=== PATIENT | male | born 1960 | race Caucasian/White ===

== ENCOUNTER 2020-12-24 14:11 | Observation (INO) | payer OTHER, SELFPAY ==
--- NOTE | 2020-12-24 14:47 | RAD REPORT ---
EXAM DESCRIPTION: CT - Ct Stroke Brain Wo Cont - 12/24/2020 2:37 pm CLINICAL HISTORY: AMS and visual changes Headache, drowsiness, visual changes, CVA type symptoms. COMPARISON: No comparisons TECHNIQUE: All CT scans are performed using dose optimization technique as appropriate and may inclu de automated exposure control or mA/KV adjustment according to patient size. FINDINGS: No intracranial hemorrhage, hydrocephalus or extra-axial fluid collection.No areas of brai n edema or evidence of midline shift. Moderate opacification both maxillary antra seen. Paranasal sinuses and mastoids are otherwise clear. The calvarium is intact. IMPRESSION: No acute intracranial abnormality. Moderate bilateral maxillary sinus disease. The findings were discussed with Dr. Mayorga in the ER On 12/24/2020 at 2:42 p.m. by telephone.
[2020-12-24 14:49] LABS: Absolute Lymphocytes (CBC) 1.3 K/uL (0.7-4.9); Basophils % 0.7 % (0-1.3); Hematocrit 42.8 % (39.6-49.0); Lymphocytes % 16.9 % (15.3-44.8); MPV 8.2 fL (7.6-11.3); RBC Red Blood Cell Count 5.12 M/uL (4.33-5.43)
[2020-12-24 14:58] LABS: Protime INR 1.12
--- NOTE | 2020-12-24 15:10 | RAD REPORT ---
EXAM DESCRIPTION: RAD - Chest Single View - 12/24/2020 3:00 pm CLINICAL HISTORY: AMS and visual changes Chest pain. COMPARISON: No comparisons FINDINGS: Portable technique limits examination quality. The lungs are grossly clear. The heart is normal in size. No displaced fractures. IMPRESSION: No acute intrathoracic process suspected.
[2020-12-24 15:24] LABS: Potassium 2.2 mmol/L (3.5-5.1)
--- NOTE | 2020-12-24 16:39 | RAD REPORT ---
EXAM DESCRIPTION: CT - Chest Abd Pelvis Wo Con - 12/24/2020 4:18 pm CLINICAL HISTORY: Chest and abdomen pain. CHEST PAIN COMPARISON: No comparisons TECHNIQUE: A limited noncontrast study is performed. All CT scans are performed using dose optimization technique as appropriate and may include automated exposure control or mA/KV adjustment according to patient size. FINDINGS: Right apical air cyst is present measuring 3 cm. Smaller cystic areas are seen within the dominant air cyst.No pulmonary mass or infiltrate seen.No pleural or pericardial effusion.No intratho racic adenopathy. The liver, spleen, pancreas, adrenal glands and kidneys are within normal limits. Cholecystectomy. Po stsurgical changes of gastric bypass noted. No bowel obstruction, free air, free fluid or abscess. Normal appendix. There is significant fecal re tention throughout the colon. No pathologic lymphadenopathy in the abdomen or pelvis. Moderate lumbar degenerative changes. IMPRESSION: Significant constipation is present.
[2020-12-24] MEDS ORDERED: POTASSIUM CL SA 10 MEQ TAB PO ONE (17:41)
[2020-12-24] MEDS ORDERED: NA CHLORIDE 0.9% 1,000 ML ONE (17:42)
[2020-12-24] MEDS ORDERED: KCL 20 MEQ/100 mL IVPB 20 MEQ/100 ML BAG IV ONE (17:42)
--- NOTE | 2020-12-24 18:49 | RAD REPORT ---
EXAM DESCRIPTION: MRI - Brain Wo Cont - 12/24/2020 6:26 pm CLINICAL HISTORY: Altered mental status and visual disturbance;Dizziness Headache, drowsiness, visual disturbances. COMPARISON: Chest Single View dated 12/06/2018; CHEST SINGLE VIEW dated 01/03/2011Ct Stroke Brain Wo Co nt dated 12/24/2020 TECHNIQUE: Multi-sequence, multiplanar MR imaging of the brain was performed without contrast. FINDINGS: No intracranial hemorrhage, hydrocephalus or extra-axial fluid collections.A few small foc i of elevated periventricular FLAIR hyperintensities noted in a nonspecific pattern. These are doubtf ul to any clinical significance. No edema or shift of midline structures. No findings to suspect brai n mass. DWI is negative for acute CVA. Midline structures are normally formed. Moderate opacification of both maxillary antra. IMPRESSION: Negative for acute CVA or other acute intracranial process. Moderate bilateral maxillary sinus disease.
--- NOTE | 2020-12-24 19:15 | EDPHYS ---
Physician Documentation [facility] Name: Irvin Grullon Age: 60 yrs Sex: Male : 1960 Arrival Date: 12/24/2020 Time: 14:12 Bed 26 Private MD: ED Physician Harris Mayorga HPI: 12/24 18:47 This 60 yrs old Male presents to ER via Wheelchair with complaints of Blurred kdr Vision, Slurred Speech. 18:47 The patient presents to the emergency department with a speech or higher order brain kdr function problem, Slurred speech, a vision problem, Spots traveling across his field of vision, Patient also states that he has been having unusual thoughts. Onset: The symptoms/episode began/occurred Patient's symptoms were noted on awakening this morning. He has been having the visual disturbances for several weeks. The slurring of his speech however was new today.. Context: occurred at home, occurred while the patient was asleep. Associated signs and symptoms: Pertinent positives: dizziness, blurred vision, visual field changes. Severity of symptoms: At their worst the symptoms were mild moderate just prior to arrival, in the emergency department the symptoms are unchanged. Patient's baseline: Neuro: alert and fully oriented, Motor: no deficits, Ambulation: walks without assistance. Current symptoms: Patient speech has improved but is not back to baseline. He continues to have mild intermittent blurry vision but symptoms have improved.. The visual disturbances have been going on for a couple of weeks but his speech changes are new today. The patient has been recently seen by a physician: Patient was recently seen for anemia and weakness. His relates that he is hemoglobin was about 6 and required transfusion and admission. They are not certain as to why this happened.. Historical: - Allergies: 14:28 No Known Allergies; jd3 - Home Meds: 14:28 "muscle relaxer" [Active]; sertraline oral [Active]; Baclofen Oral [Active]; jd3 21:26 Champion 10-325 mg oral tab 1 tab every 4-6 hours for pain [Active]; hydrochlorothiazide df1 12.5 mg oral tab 1 tab once daily [Active]; sertraline 100 mg oral tab 2 tabs once daily [Active]; furosemide 20 mg Oral tab 1 tab once daily [Active]; baclofen 10 mg Oral tab 1 tab 4 times per day [Active]; famotidine 20 mg Oral tab 1 tab once daily [Active]; atorvastatin 20 mg oral tab 1 tab once daily [Active]; potassium chloride 10 mEq Oral cpER 1 cap once daily [Active]; pantoprazole 40 mg oral TbEC 1 tab once daily [Active]; ferrous sulfate 325 mg (65 mg iron) oral TbEC 325 mg daily [Active]; aspirin 81 mg Oral chew 1 tab once daily [Active]; - PMHx: 14:28 chronic back pain; Hypertensive disorder; low BGL; jd3 - Immunization history:: Client reports receiving the 2nd dose of the Covid vaccine, Date received: August 2020. - Social history:: Smoking status: Reported history of juuling and/or vaping. ROS: 18:47 Constitutional: Negative for fever, chills, and weight loss, Eyes: Negative for injury, kdr pain, redness, and discharge, ENT: Negative for injury, pain, and discharge, Neck: Negative for injury, pain, and swelling, Cardiovascular: Negative for chest pain, palpitations, and edema, Respiratory: Negative for shortness of breath, cough, wheezing, and pleuritic chest pain, Abdomen/GI: Negative for abdominal pain, nausea, vomiting, diarrhea, and constipation, Back: Negative for injury and pain, : Negative for injury, bleeding, discharge, and swelling, MS/Extremity: Negative for injury and deformity, Skin: Negative for injury, rash, and discoloration, Allergy/Immunology: Negative for hives, rash, and allergies, Endocrine: Negative for neck swelling, polydipsia, polyuria, polyphagia, and marked weight changes, Hematologic/Lymphatic: Negative for swollen nodes, abnormal bleeding, and unusual bruising. 18:47 Neuro: Positive for dizziness, headache, visual changes, Spots moving across to his eyes, Negative for 18:47 Psych: Positive for The patient states that he has been having intrusive thoughts which are not dangerous to himself or others, Negative for auditory hallucinations, visual hallucinations, homicidal ideation, suicide gesture, suicidal ideation. Exam: 18:47 Constitutional: This is a well developed, well nourished patient who is awake, alert, kdr and in no acute distress. Head/Face: Normocephalic, atraumatic. Eyes: Pupils equal round and reactive to light, extra-ocular motions intact. Lids and lashes normal. Conjunctiva and sclera are non-icteric and not injected. Cornea within normal limits. Periorbital areas with no swelling, redness, or edema. Neck: Trachea midline, no thyromegaly or masses palpated, and no cervical lymphadenopathy. Supple, full range of motion without nuchal rigidity, or vertebral point tenderness. No Meningismus. Chest/axilla: Normal chest wall appearance and motion. Nontender with no deformity. No lesions are appreciated. Cardiovascular: Regular rate and rhythm with a normal S1 and S2. No gallops, murmurs, or rubs. Normal PMI, no JVD. No pulse deficits. Respiratory: Lungs have equal breath sounds bilaterally, clear to auscultation and percussion. No rales, rhonchi or wheezes noted. No increased work of breathing, no retractions or nasal flaring. Abdomen/GI: Soft, non-tender, with normal bowel sounds. No distension or tympany. No guarding or rebound. No evidence of tenderness throughout. Back: No spinal tenderness. No costovertebral tenderness. Full range of motion. Skin: Warm, dry with normal turgor. Normal color with no rashes, no lesions, and no evidence of cellulitis. MS/ Extremity: Pulses equal, no cyanosis. Neurovascular intact. Full, normal range of motion. Neuro: Awake and alert, GCS 15, oriented to person, place, time, and situation. Cranial nerves II-XII grossly intact. Motor strength 5/5 in all extremities. Sensory grossly intact. Cerebellar exam normal. His does not feel that he is presently exhibiting neurologic symptoms not in accordance with his baseline behavior Psych: Awake, alert, with orientation to person, place and time. Behavior, mood, and affect are within normal limits. Vital Signs: 14:29 BP 137 / 92; Pulse 91; Resp 17 S; Temp 97.7(O); Pulse Ox 100% on R/A; Weight 77.11 kg jd3 (R); Height 5 ft. 11 in. (180.34 cm) (R); Pain 7/10; 15:56 BP 137 / 78; Pulse 74; Resp 18 S; Pulse Ox 99% on R/A; kh1 18:36 BP 150 / 98; Pulse 70; Resp 20 S; Temp 97.0; Pulse Ox 95% on R/A; kh1 19:36 BP 122 / 89; Pulse 72; Resp 18; Pulse Ox 97% on R/A; df1 21:18 BP 150 / 86; Pulse 71; Resp 18; Pulse Ox 87% on R/A; bc5 23:06 BP 133 / 71; Pulse 71; Resp 18; Pulse Ox 100% on R/A; df1 14:29 Body Mass Index 23.71 (77.11 kg, 180.34 cm) jd3 NIH Stroke Scale Scores: 14:39 NIHSS Score: 1 oh MDM: 19:12 Data reviewed: vital signs, nurses notes, lab test result(s), radiologic studies. ED kdr course: The patient had stated during the initial evaluation that he was unable to swallow solids and even some liquids, he did take the potassium replacement p.o. and he also did fine with the swallow study for the stroke evaluation. I nonetheless gave him some soda and crackers to affirm his ability to take p.o.. 19:15 Patient medically screened. [facility] [address] 12/24 14:24 Order name: Basic Metabolic Panel; Complete Time: 16:58 [facility] [address] 12/24 14:24 Order name: CBC with Diff; Complete Time: 16:58 [facility] [address] 12/24 14:24 Order name: Protime (+inr); Complete Time: 16:58 [facility] [address] 12/24 14:24 Order name: Ptt, Activated; Complete Time: 16:58 [facility] [address] 12/24 14:31 Order name: Glucose, Ancillary Testing; Complete Time: 16:58 [facility] 12/24 14:24 Order name: CT Stroke Brain w/o Contrast; Complete Time: 16:58 [facility] [address] 12/24 14:24 Order name: Stroke CXR 1 View; Complete Time: 16:58 [facility] [address] 12/24 15:12 Order name: MRI - Brain Wo Cont; Complete Time: 18:54 [facility] [address] 12/24 16:15 Order name: Chest Abd Pelvis Wo Con; Complete Time: 16:58 [facility] 12/24 21:39 Order name: SARS-COV-2 RT PCR EDDC 12/24 14:24 Order name: EKG; Complete Time: 14:24 [facility] [address] 12/24 14:24 Order name: Accucheck; Complete Time: 14:36 [facility] [address] 12/24 14:24 Order name: Cardiac monitoring; Complete Time: 14:36 [facility] [address] 12/24 14:24 Order name: EKG - Nurse/Tech; Complete Time: 14:36 [facility] [address] 12/24 14:24 Order name: IV Saline Lock; Complete Time: 14:37 [facility] [address] 12/24 14:24 Order name: Labs collected and sent; Complete Time: 14:37 [facility] [address] 12/24 14:24 Order name: NPO; Complete Time: 14:37 [facility] [address] 12/24 14:24 Order name: O2 Per Protocol; Complete Time: 14:37 [facility] [address] 12/24 14:24 Order name: O2 Sat Monitoring; Complete Time: 14:37 [facility] [address] 12/24 14:24 Order name: Stroke Swallow Screen; Complete Time: 15:56 [facility] [address] 12/24 19:58 Order name: CONS Physician Consult EDMS Administered Medications: 17:38 Drug: Potassium Chloride 20 mEq Route: IV; Rate: calculated rate; Site: right formerly [facility] antecubital; 17:38 Drug: Potassium Chloride Liquid 40 mEq Route: PO; formerly [facility] 19:37 Follow up: Response: No adverse reaction df1 17:38 Drug: NS 0.9% 1000 ml Route: IV; Rate: 1 bolus; Site: right antecubital; formerly [facility] 23:06 Follow up: IV Status: Completed infusion; IV Intake: 1000ml df1 Disposition Summary: 12/24/20 19:15 Hospitalization Ordered Hospitalization Status: Observation kdr Provider: Carmelo Mesa kdr Location: Telemetry/[facility] (observation) kdr Condition: Fair kdr Problem: new kdr Symptoms: have improved kdr Bed/Room Type: Standard kdr Room Assignment: 230(12/24/20 22:31) tl1 Diagnosis - Other visual disturbances kdr - Slurred speech kdr - Hypokalemia kdr - Hypo-osmolality and hyponatremia kdr - Acute renal failure kdr Forms: - Medication Reconciliation Form kdr - SBAR form kdr NIH Stroke Scale - NIH Stroke Score Date: 12/24/2020 Time: 14:39 Total Score = 1 1a. Level of Consciousness (LOC) - 0(Alert) 1b. Level of Consciousness (LOC) (Month \\T\\ Age) - 0(Both) 1c. LOC Commands (Open \\T\\ Closes Eyes/Box Machine Operator) - 0(Both) 2. Best Gaze (Lateral Gaze Paresis) - 0(Normal) 3. Visual Field Loss - 1(Partial hemianopia) 4. Facial Palsy - 0(Normal) 5a. Left Arm: Motor (10-second hold) - 0(No drift) 5b. Right Arm: Motor (10-second hold) - 0(No drift) 6a. Left Leg: Motor (5-second hold - always test supine) - 0(No drift) 6b. Right Leg: Motor (5-second hold - always test supine) - 0(No drift) 7. Limb Ataxia (finger/nose \\T\\ heel/whitt - test with eyes open) - 0(Absent) 8. Sensory Loss (pinprick arms/legs/face) - 0(Normal) 9. Best Language: Aphasia (description/naming/reading) - 0(No aphasia) 10. Dysarthria (speech clarity - read or repeat words) - 0(Normal) 11. Extinction and Inattention (visual/tactile/auditory/spatial/personal) - 0(No abnormality) Initials: oh Signatures: Dispatcher [employer] EDMS Harris Mayorga MD MD kdr Lasagna, Tonya, RN RN tl1 Fausto Thurston RN RN Rima Swanson 1 Belén Ambriz df1 Corrections: (The following items were deleted from the chart) 16:15 15:12 Chest Abdomen Pelvis W Con+CT.RAD.BRZ ordered. EDMS EDMS 20:47 20:36 CORONAVIRUS+MR.LAB.BRZ ordered. EDMS EDMS 21:32 14:28 Home Meds: Champion Oral; jd3 df1 21:32 14:28 Home Meds: Hydrochlorothiazide Oral; jd3 df1 22:31 19:15 kdr tl1
--- NOTE | 2020-12-24 19:15 | ER ---
Nurse's Notes [facility] Name: Irvin Grullon Age: 60 yrs Sex: Male : 1960 Arrival Date: 12/24/2020 Time: 14:12 Bed 26 Private MD: Diagnosis: Other visual disturbances;Slurred speech;Hypokalemia;Hypo-osmolality and hyponatremia;Acute renal failure Presentation: 12/24 14:25 Chief complaint: Patient states: "I woke up today at 11 having some dizziness, slurred jd3 speech and seeing white dots in my eyes. the dots have been going on, but the other symptoms I noticed when I woke up. my family thinks it might be my low blood sugar, but I don't know. I feel better then I feel the symptoms again, coming and going.". Coronavirus screen: At this time, the client does not indicate any symptoms associated with coronavirus-19. Ebola Screen: Patient negative for fever greater than or equal to 101.5 degrees Fahrenheit, and additional compatible Ebola Virus Disease symptoms. No acute neurological deficit is noted. Pre-hospital glucose is not applicable to this patient. Initial Sepsis Screen: Does the patient meet any 2 criteria? No. Patient's initial sepsis screen is negative. Does the patient have a suspected source of infection? No. Patient's initial sepsis screen is negative. Risk Assessment: Do you want to hurt yourself or someone else? Patient reports no desire to harm self or others. Onset of symptoms was December 24, 2020. 14:25 Method Of Arrival: Wheelchair jd3 14:25 Acuity: GENE 3 jd3 Triage Assessment: 18:46 General: Appears in no apparent distress. uncomfortable, Behavior is calm, cooperative, kh1 appropriate for age. Pain:. 18:47 The onset of the patients symptoms was more than six hours ago. kh1 18:47 The onset of the patients symptoms was December 24, 2020 at 11:00. Neuro: No deficits kh1 noted. Level of Consciousness is obeys commands, Oriented to person, place, time, situation, Radiographer Cardiac Catheterization are equal bilaterally Moves all extremities. Gait is unsteady, Speech is normal. Stroke Activation: Symptom onset > 6 hours Physician: Stroke Attending; Name: ; Notified At: ; Arrived At: Physician: Chief Stroke Resident; Name: ; Notified At: ; Arrived At: Physician: Stroke Resident; Name: ; Notified At: ; Arrived At: Physician: ED Attending; Name: ; Notified At: ; Arrived At: Physician: ED Resident; Name: ; Notified At: ; Arrived At: Historical: - Allergies: 14:28 No Known Allergies; jd3 - Home Meds: 14:28 "muscle relaxer" [Active]; sertraline oral [Active]; Baclofen Oral [Active]; jd3 21:26 [place] 10-325 mg oral tab 1 tab every 4-6 hours for pain [Active]; hydrochlorothiazide df1 12.5 mg oral tab 1 tab once daily [Active]; sertraline 100 mg oral tab 2 tabs once daily [Active]; furosemide 20 mg Oral tab 1 tab once daily [Active]; baclofen 10 mg Oral tab 1 tab 4 times per day [Active]; famotidine 20 mg Oral tab 1 tab once daily [Active]; atorvastatin 20 mg oral tab 1 tab once daily [Active]; potassium chloride 10 mEq Oral cpER 1 cap once daily [Active]; pantoprazole 40 mg oral TbEC 1 tab once daily [Active]; ferrous sulfate 325 mg (65 mg iron) oral TbEC 325 mg daily [Active]; aspirin 81 mg Oral chew 1 tab once daily [Active]; - PMHx: 14:28 chronic back pain; Hypertensive disorder; low BGL; jd3 - Immunization history:: Client reports receiving the 2nd dose of the Covid vaccine, Date received: August 2020. - Social history:: Smoking status: Reported history of juuling and/or vaping. Screenin:53 Abuse screen: Denies threats or abuse. Nutritional screening: No deficits noted. oh Tuberculosis screening: No symptoms or risk factors identified. Fall Risk Assessment: 14:39 VAN Scoring: Arm Drift: Patients demonstrates NO arm weakness. Patient is VAN Negative. oh Visual Disturbance: Field Cut: Abnormal visual mcgee noted. Provider notified of +VAN scoring. Aphasia: No aphasia noted. Neglect: No neglect noted. Patient has been NPO before screening. The patient is alert, and able to follow commands. The patient does not exhibit slurred or garbled speech. The patient is not exhibiting difficulty speaking. The patient does not exhibit difficulty understanding words. The patient is unable to swallow own secretions without drooling or the need for suction. T-PA (Activase) Screening: Contraindications: Patient reports onset of signs and symptoms of stroke greater than 6 hours ago: Yes. Pain: Denies pain. EENT: Eyes blurry vision, seeing spots. 14:54 Neuro: Reports blurred vision dizziness and slurred speech. oh 15:17 Patient has been NPO before screening. The patient is alert, and able to follow oh commands. The patient does not exhibit slurred or garbled speech. The patient is not exhibiting difficulty speaking. The patient does not exhibit difficulty understanding words. The patient is able to swallow own secretions with no drooling or need for suction. Patient tolerated one teaspoon of water. No drooling, immediate coughing, gurgling, or clearing of the throat was noted. The patient tolerated 90mL of water. No drooling, immediate coughing, gurgling, or clearing of the throat was noted. The patient passed the bedside swallow screening. Oral medications may be given as ordered. Contact Physician for further diet orders. Provider notified of bedside swallow screening results: Harris Mayorga MD. 15:56 Reassessment: Patient appears in no apparent distress at this time. No changes from kh1 previously documented assessment. Patient and/or family updated on plan of care and expected duration. Pain level reassessed. Patient is alert, oriented x 3, equal unlabored respirations, skin warm/dry/pink. 17:00 Reassessment: Patient appears in no apparent distress at this time. No changes from kh1 previously documented assessment. Patient and/or family updated on plan of care and expected duration. Pain level reassessed. Patient is alert, oriented x 3, equal unlabored respirations, skin warm/dry/pink. 22:45 The patient is alert, and able to follow commands. The patient does not exhibit slurred df1 or garbled speech. The patient is not exhibiting difficulty speaking. The patient does not exhibit difficulty understanding words. The patient is able to swallow own secretions with no drooling or need for suction. Patient tolerated one teaspoon of water. No drooling, immediate coughing, gurgling, or clearing of the throat was noted. The patient tolerated 90mL of water. No drooling, immediate coughing, gurgling, or clearing of the throat was noted. The patient passed the bedside swallow screening. Oral medications may be given as ordered. Contact Physician for further diet orders. Vital Signs: 14:29 BP 137 / 92; Pulse 91; Resp 17 S; Temp 97.7(O); Pulse Ox 100% on R/A; Weight 77.11 kg jd3 (R); Height 5 ft. 11 in. (180.34 cm) (R); Pain 7/10; 15:56 BP 137 / 78; Pulse 74; Resp 18 S; Pulse Ox 99% on R/A; kh1 18:36 BP 150 / 98; Pulse 70; Resp 20 S; Temp 97.0; Pulse Ox 95% on R/A; kh1 19:36 BP 122 / 89; Pulse 72; Resp 18; Pulse Ox 97% on R/A; df1 21:18 BP 150 / 86; Pulse 71; Resp 18; Pulse Ox 87% on R/A; bc5 23:06 BP 133 / 71; Pulse 71; Resp 18; Pulse Ox 100% on R/A; df1 14:29 Body Mass Index 23.71 (77.11 kg, 180.34 cm) jd3 NIH Stroke Scale Scores: 14:39 NIHSS Score: 1 oh ED Course: 14:12 Patient arrived in ED. as 14:23 Harris Mayorga MD is Attending Physician. kdr 14:27 Triage completed. jd3 14:30 Arm band placed on. jd3 14:36 Rebecca Gaytan, MOO is Primary Nurse. oh 14:38 CT Stroke Brain w/o Contrast In Process Unspecified. EDMS 14:47 Ptt, Activated Sent. kh1 14:47 Protime (+inr) Sent. kh1 14:47 CBC with Diff Sent. kh1 14:47 Basic Metabolic Panel Sent. kh1 15:00 Stroke CXR 1 View In Process Unspecified. EDMS 15:26 Notified ED physician of a critical lab result(s). potassium 2.2 and chloride 82. aa5 16:18 Chest Abd Pelvis Wo Con In Process Unspecified. EDMS 18:26 MRI - Brain Wo Cont In Process Unspecified. EDMS 18:46 No provider procedures requiring assistance completed. Inserted saline lock: 20 gauge kh1 in right antecubital area, using aseptic technique. Blood collected. 18:47 Patient has correct armband on for positive identification. Call light in reach. Side kh1 rails up X 1. groundwater monitoring technician on. Pulse ox on. NIBP on. 19:13 Carmelo Mesa is Hospitalizing Provider. kdr 23:08 Patient admitted, IV remains in place. df1 Administered Medications: 17:38 Drug: Potassium Chloride 20 mEq Route: IV; Rate: calculated rate; Site: right [facility] antecubital; 17:38 Drug: Potassium Chloride Liquid 40 mEq Route: PO; kh1 19:37 Follow up: Response: No adverse reaction df1 17:38 Drug: NS 0.9% 1000 ml Route: IV; Rate: 1 bolus; Site: right antecubital; kh1 23:06 Follow up: IV Status: Completed infusion; IV Intake: 1000ml df1 Intake: 23:06 IV: 1000ml; Total: 1000ml. df1 Outcome: 19:15 Decision to Hospitalize by Provider. kdr 23:07 Admitted to Med/surg accompanied by tech. df1 23:07 Condition: stable 23:07 Instructed on the need for admit. 23:20 Patient left the ED. df1 NIH Stroke Scale - NIH Stroke Score Date: 12/24/2020 Time: 14:39 Total Score = 1 1a. Level of Consciousness (LOC) - 0(Alert) 1b. Level of Consciousness (LOC) (Month \\T\\ Age) - 0(Both) 1c. LOC Commands (Open \\T\\ Closes Eyes/Cargo Agent) - 0(Both) 2. Best Gaze (Lateral Gaze Paresis) - 0(Normal) 3. Visual Field Loss - 1(Partial hemianopia) 4. Facial Palsy - 0(Normal) 5a. Left Arm: Motor (10-second hold) - 0(No drift) 5b. Right Arm: Motor (10-second hold) - 0(No drift) 6a. Left Leg: Motor (5-second hold - always test supine) - 0(No drift) 6b. Right Leg: Motor (5-second hold - always test supine) - 0(No drift) 7. Limb Ataxia (finger/nose \\T\\ heel/whitt - test with eyes open) - 0(Absent) 8. Sensory Loss (pinprick arms/legs/face) - 0(Normal) 9. Best Language: Aphasia (description/naming/reading) - 0(No aphasia) 10. Dysarthria (speech clarity - read or repeat words) - 0(Normal) 11. Extinction and Inattention (visual/tactile/auditory/spatial/personal) - 0(No abnormality) Initials: oh Signatures: Dispatcher [employer] EDMS Harris Myaorga MD MD kdr Martinez, Amelia as Calderon, Audri, RN RN aa5 Fausto Thurston RN RN jd3 Rima See 1 Marce Lebron RN RN bc5 Belén Ambriz df1 Rebecca Gaytan RN RN oh Corrections: (The following items were deleted from the chart) 20:47 20:40 CORONAVIRUS+ drawn and sent. bc5 EDMS 21:32 14:28 Home Meds: [place] Oral; jd3 df1 21:32 14:28 Home Meds: Hydrochlorothiazide Oral; jd3 df1
--- NOTE | 2020-12-24 22:10 | P.HP ---
Certification for Inpatient Patient admitted to: Inpatient With expected LOS: <2 Midnights Patient will require the following post-hospital care: None Practitioner: I am a practitioner with admitting privileges, knowledge of patient current condition, hospital course, and medical plan of care. Services: Services provided to patient in accordance with Admission requirements found in Title 42 Section 412.3 of the Code of Federal Regulations Patient History Date of Service: 12/24/20 Reason for admission: ARF, hypokalemia, hyponatremia History of Present Illness: Mr. Grullon is a 60 yo M with chronic back pain, HTN, gastric bypass surgery 12 years ago who presents with blurred vision and slurred speech. One month ago, he was admitted to [facility] for weakness and anemia requiring transfusion (Hgb of 6) and told he had low iron at that time. FOBT was negative, no bleed was identified. Hgb 14 today. Today he reports that for hte past few weeks he had had blurred vision and white spots in front of his eyes. This morning whenhe woke up with slurred speech. He describes feeling 'spacy', like he is 'fading out', and dizzy and unsteady on his feet. Reports increased anxiety and fatigue. His says he wasn't making sense so they brought him to the ED. CT Head and MRI brain wnl. CXR wnl. CT A/P shows constipation. His speech has improved, passed bedside swallow, eating [employer]'s at bedside. He also reports he has lost 40 lbs (185 to 145lb) over the past year. Na 130, K 2.2, Cl 82, CO3 33, BUN 35, Cr 1.079, GFR 39, Glu 123. Does not report any kidney injury from admission at [facility]. Recently started taking furosemide one month ago for leg swelling, also takes HCTZ. Takes 1600mg of ibuprofen daily. - Past Medical/Surgical History -: chronic pain -: HTN -: low blood glucose -: gastric bypass 12 years ago -: [facility] Psychosocial/ Personal History: - Social History Smoking Status: Current every day smoker Alcohol use: No CD- Drugs: No Caffeine use: Yes Place of Residence: Home Review of Systems 10-point ROS is otherwise unremarkable General: Weakness, Malaise Neurological: Weakness, Incoordination, Change in Speech Physical Examination - Physical Exam General: Alert, In no apparent distress, Cooperative HEENT: Atraumatic, PERRLA, Mucous membr. moist/pink, EOMI, Sclerae nonicteric Neck: Supple, 2+ carotid pulse no bruit, No LAD, Without JVD or thyroid abnormality Respiratory: Clear to auscultation bilaterally, Normal air movement Cardiovascular: No edema, Regular rate/rhythm, Normal S1 S2, No gallops, No rubs, No murmurs Gastrointestinal: Normal bowel sounds, No tenderness Musculoskeletal: No tenderness Integumentary: No rashes Neurological: Normal strength at 5/5 x4 extr, Normal tone, Normal affect Lymphatics: No axilla or inguinal lymphadenopathy - Studies Laboratory Data (last 24 hrs) 12/24/20 14:29: PT 12.9 H, INR 1.12, APTT 30.4 12/24/20 14:29: WBC 7.60, Hgb 14.8, Hct 42.8, Plt Count 304 12/24/20 14:29: Sodium 130 L, Potassium 2.2 L*, BUN 35 H, Creatinine 1.79 H, Glucose 123 H Assessment and Plan - Problems (Diagnosis) (1) Hypokalemia Current Visit: Yes Status: Acute (2) Hyponatremia Current Visit: Yes Status: Acute (3) STEW (acute kidney injury) Current Visit: Yes Status: Acute (4) Chronic back pain Current Visit: Yes Status: Chronic Qualifiers: Back pain location: back pain in unspecified location Back pain laterality: unspecified Qualified Code(s): M54.9 - Dorsalgia, unspecified; G89.29 - Other chronic pain (5) HTN (hypertension) Current Visit: Yes Status: Chronic Qualifiers: Hypertension type: primary hypertension Qualified Code(s): I10 - Essential (primary) hypertension - Plan nephrology consulted recheck BMP at midnight, continue IVF hydration, continue potassium replacement stool softener PRN avoid NSAIDs, hold HCTZ and Lasix pain management as needed DVT ppx Discharge Plan: Home Plan to discharge in: 24 Hours - Advance Directives Does patient have a Living Will: No Does patient have a Durable POA for Healthcare: No - Code Status/Comfort Care Code Status Assessed: Yes (full code ) Critical Care: No Time Spent Managing Pts Care (In Minutes): 70
[2020-12-24 23:46] VITALS: BMI 20.4
[2020-12-24] MEDS ORDERED: KCL 20 MEQ/100 mL IVPB 20 MEQ/100 ML BAG IV SCH (23:59)
[2020-12-24] MEDS ORDERED: POLYETHYL GLY 3350 17 GM/DOSE PO PRN (23:59)
[2020-12-24] MEDS ORDERED: NA CHLORIDE 0.9% 1,000 ML IV SCH (23:59)
[2020-12-24] MEDS ORDERED: ACETAMINOPHEN 500 MG TAB PO PRN (23:59)
[2020-12-24] MEDS ORDERED: ONDANSETRON 4 MG/2 ML VIAL IV PRN (23:59)
[2020-12-24] MEDS ORDERED: BACLOFEN 10 MG TAB PO PRN (23:59)
[2020-12-24] MEDS ORDERED: DOCUSATE NA/SENNA CONC 1 TAB PO PRN (23:59)
[2020-12-25] MEDS: DOCUSATE NA 100 MG CAP PO SCH ×3 (00:27→21:00)
[2020-12-25] MEDS: HYDROCODONE/APAP 10/325 TAB PO PRN ×3 (00:27→14:55)
[2020-12-25] MEDS: HEPARIN 5000 UNIT/ML 1 ML VIAL SQ SCH ×3 (00:27→16:03)
[2020-12-25 00:48] LABS: Urine Appearance CLEAR (Clear); Urine Bilirubin NEGATIVE (Negative); Urine Blood NEGATIVE (Negative); Urine Color YELLOW (Yellow); Urine Glucose NEGATIVE (Negative); Urine Protein NEGATIVE (Negative); Urine pH 5.5 (5.0-7.0)
[2020-12-25 00:56] LABS: Urine Microscopic Reflex NO UMIC
[2020-12-25 01:14] LABS: UR PROTEIN 24.6 mg/dL (<11.9); Urine Protein/Creatinine Ratio 0.38 ratio (<0.15)
[2020-12-25 01:22] LABS: Uric Acid 7.4 mg/dL (3.5-7.2)
[2020-12-25 01:23] LABS: Potassium 2.1 mmol/L (3.5-5.1)
[2020-12-25] MEDS ORDERED: POTASSIUM 25 MEQ EFFERV TAB PO ONE ×2 (01:44→17:22)
[2020-12-25] MEDS ORDERED: KCL 20 MEQ/100 mL IVPB 20 MEQ/100 ML BAG IV SCH (02:00)
[2020-12-25] MEDS: NS KCL 20MEQ 20 MEQ/1,000 ML BAG IV SCH ×2 (02:30→12:35)
[2020-12-25] MEDS ORDERED: FAMOTIDINE 20 MG TAB PO ONE (03:00)
--- NOTE | 2020-12-25 05:27 | P.CNS ---
Date of Consult: 12/25/20 Reason for Consult: STEW, hypokalemia, hyponatremia Requesting Physician: Renetta Mathew Chief Complaint: ARF, hypokalemia, hyponatremia History of Present Illness: 60M w/ PMHx of chronic intermittent bilateral leg edema related bilateral knee injuries from football, chronic back pain, HTN, history of severe anemia requiring blood transfusion 1 month ago, & gastric bypass surgery 12 years ago who presents with generalized weakness, blurred vision and slurred speech. he reports being started on HCTZ and furosemide 1 month ago for his bilateral leg edema. He states that he has also not been drinking adequate amount of fluids every day for the past month. On presentation, he was noted to have severe hypokalemia with hyponatremia and achy I. He received IV fluids and electrolyte repletion. His serum creatinine improved from 1.8-1.1. He has mild proteinuria. Allergies No Known Allergies Allergy (Unverified 12/24/20 23:46) Home Medications: ALPRAZolam [Xanax*] 0.25 mg PO PRN PRN 12/25/20 Aspirin [Aspirin EC 81 MG] 81 mg PO DAILY 12/25/20 Aspirin/Acetaminophen/Caffeine [Excedrin Migraine Caplet] 1 each PO PRN PRN 12/25/20 Atorvastatin Calcium [Lipitor*] 10 mg PO BEDTIME 12/25/20 Baclofen [Lioresal*] 10 mg PO QID 12/25/20 Cholecalciferol (Vitamin D3) [Vitamin D 1000 Iu Tab*] 1,000 unit PO EVERY 7TH DAY 12/25/20 Famotidine [Pepcid*] 20 mg PO DAILY 12/25/20 Ferrous Sulfate [Ferrous Sulfate*] 325 mg PO DAILY 12/25/20 Furosemide [Lasix*] 20 mg PO M,W,F #14 tab 12/25/20 Hydrocodone Bit/Acetaminophen [[place] 10-325 Tablet] 1 each PO Q4H PRN 12/25/20 Pantoprazole [Protonix Tab*] 40 mg PO DAILY 12/25/20 Potassium Chloride [K-Dur] 20 meq PO M,W,F #15 tab.er.prt 12/25/20 Potassium Chloride [Klor-Con 10] 10 meq PO DAILY 12/25/20 Sertraline [Zoloft*] 200 mg PO DAILY 12/25/20 Spironolactone [Aldactone] 25 mg PO DAILY #30 tab 12/25/20 - Past Medical/Surgical History -: chronic pain -: HTN -: low blood glucose -: gastric bypass 12 years ago -: francisco javier Psychosocial/ Personal History: - Social History Alcohol use: No CD- Drugs: No Caffeine use: Yes Place of Residence: Home Review of Systems General: Weakness Eyes: Other (blurry vision) ENT: Unremarkable Respiratory: Unremarkable Cardiovascular: Unremarkable Gastrointestinal: Unremarkable Genitourinary: Unremarkable Musculoskeletal: Back Pain, Pedal edema Integumentary: Unremarkable Neurological: Weakness Lymphatics: Unremarkable Physical Examination Temp Pulse Resp BP Pulse Ox 98.7 F 85 18 160/77 H 99 12/25/20 04:00 12/25/20 04:00 12/25/20 04:00 12/25/20 04:00 12/25/20 04:00 General: In no apparent distress HEENT: Atraumatic, Normocephalic Neck: Supple, JVD not distended Respiratory: Clear to auscultation bilaterally, Other (symmetric chest expansion) Cardiovascular: Normal S1 S2, No rubs, No murmurs Gastrointestinal: Soft and benign, No guarding Musculoskeletal: No clubbing, No swelling Integumentary: No warmth Neurological: Normal speech, Normal tone Lymphatics: No axilla or inguinal lymphadenopathy Urinary: Other (no bladder distention) External genitalia: Deferred Rectal: Deferred Laboratory Data (last 24 hrs) 12/24/20 14:29: PT 12.9 H, INR 1.12, APTT 30.4 12/24/20 14:29: WBC 7.60, Hgb 14.8, Hct 42.8, Plt Count 304 12/24/20 14:29: Sodium 130 L, Potassium 2.2 L*, BUN 35 H, Creatinine 1.79 H, Glucose 123 H Conclusions/Impression: # STEW 2/2 prerenal state from Lasix & HCTZ, decreased po fluid intake, in the setting of ibuprofen use serum creatinine improved to 1.81.1 with IV fluids [place] by mouth fluid intake CK 414, no rhabdo; BMP not significantly elevated at 174 Urinalysis shows prerenal state with high specific gravity at 1.020 +Mild proteinuria, random UPCR 0.4g Avoid NSAIDs Monitor renal panel # Chronic intermittent bilateral leg edema related to bilateral knee injuries from football he agreed not to resume diuretics He agreed to use compression stockings bilaterally, knee-high, ankle pressure 20-30 mmHg # Hypokalemia Improved w/ KCl Replete prn # HypoPO4 Improved Replete prn
[2020-12-25 05:59] LABS: Absolute Lymphocytes (CBC) 0.9 K/uL (0.7-4.9); Basophils % 0.5 % (0-1.3); Hematocrit 37.7 % (39.6-49.0); Lymphocytes % 14.3 % (15.3-44.8); MPV 7.6 fL (7.6-11.3); RBC Red Blood Cell Count 4.49 M/uL (4.33-5.43)
[2020-12-25 06:23] LABS: Albumin 4.5 g/dL (3.4-5.0); Bilirubin Total 0.7 mg/dL (0.2-1.0); C-Reactive Protein 11.4 mg/L (<3.00); Magnesium 2.2 mg/dL (1.8-2.4); Phosphorus 2.8 mg/dL (2.5-4.9); Thyroid Stimulating Hormone 0.621 uIU/mL (0.360-3.740)
[2020-12-25 06:30] LABS: Potassium 2.4 mmol/L (3.5-5.1)
[2020-12-25] MEDS ORDERED: FERROUS SULFATE 325 MG TAB PO SCH (09:00)
[2020-12-25] MEDS: KCL 20 MEQ/100 mL IVPB 20 MEQ/100 ML BAG IV SCH ×3 (09:37→12:34)
[2020-12-25] MEDS ORDERED: HYDROCORTISONE SUC 100 MG INJ IV ONE (13:26)
[2020-12-25 17:15] LABS: Magnesium 2.3 mg/dL (1.8-2.4); Potassium 3.2 mmol/L (3.5-5.1)
[2020-12-25 20:20] VITALS: BP 118/58; TEMP 97.6
[2020-12-25 20:51] VITALS: O2SAT 96
== END 2020-12-25 21:05 | disposition home or self-care (01) ==
LOC: ER 14:11 → ERHOLD 20:54 → 2ND 23:06
PROVIDERS: ADMIT Hospitalist; ATTEND Hospitalist
DX: N17.9 Acute kidney failure, unspecified (principal); E87.6 Hypokalemia; E87.1 Hypo-osmolality and hyponatremia; R60.0 Localized edema; K59.00 Constipation, unspecified; G89.29 Other chronic pain; M54.9 Dorsalgia, unspecified; I10 Essential (primary) hypertension; R47.81 Slurred speech; H53.9 Unspecified visual disturbance; F17.210 Nicotine dependence, cigarettes, uncomplicated; Z98.84 Bariatric surgery status; Z87.828 Personal history of other (healed) physical injury and trauma; Z79.82 Long term (current) use of aspirin; Z90.49 Acquired absence of other specified parts of digestive tract; Z20.822 Contact with and (suspected) exposure to COVID-19
CPT/HCPCS: 36415; 70450; 70551; 71045; 71250; 74176; 80048; 80053; 80061; 80069; 81003; 82550; 82570; 82947; 83540; 83615; 83735; 83880; 83930; 83935; 84100; 84132; 84156; 84165; 84300; 84439; 84443; 84550; 85025; 85610; 85730; 86140; 86335; 93005; 94760; 96361; 96374; 99285; G0378; J1644; J1720; J2405; J3480; J7030; U0003